=== PATIENT | female | born 1955 | race Asian ===

== ENCOUNTER → 2018-09-20 | Outpatient (CLI) | payer BC ==
[2018-09-22 14:08] LABS: HPV 16 Negative (Negative); HPV 18 Negative (Negative); HPV OTHER HR TYPES Negative (Negative)
== END ==
LOC: LAB 17:46 → LAB SHORT 17:46
PROVIDERS: Obstetrics & Gynecology Gynecology
DX: Z12.4 Encounter for screening for malignant neoplasm of cervix (principal)
CPT/HCPCS: 87624; G0123

== ENCOUNTER 2021-02-26 08:47 | Emergency (ER) | payer BC ==
[~2021-02-26] VITALS: Ht 167.6 cm; Wt 79.4 kg
== END 2021-02-26 10:50 | disposition home or self-care (01) ==
LOC: ER 08:47
DX: S63.283A Dislocation of proximal interphalangeal joint of left middle finger, initial encounter (principal); S61.213A Laceration without foreign body of left middle finger without damage to nail, initial encounter; W01.0XXA Fall on same level from slipping, tripping and stumbling without subsequent striking against object, initial encounter
CPT/HCPCS: 26770; 73140; 99283-25

== ENCOUNTER 2022-07-06 11:39 | Day surgery (SDC) | payer MEDICARE ==
[~2022-07-06] VITALS: Ht 162.6 cm; Wt 94.9 kg
[2022-07-06] MEDS ORDERED: Flurbiprofen100 MG (11:51)
[2022-07-06] MEDS ORDERED: FLOVENT HFA12 GM (11:52)
[2022-07-06] MEDS ORDERED: LOSARTAN-HCTZ1 EAC6 (11:52)
[2022-07-06] MEDS ORDERED: Ventolin5 MG/1 ML (11:52)
--- NOTE | 2022-07-06 11:58 | NUR ---
07/06/22 1158 Neha Lin TO RIGHT EYE @ 1152 PLEDGET TO RIGHT EYE @ 1156 BY [email or web address]
--- NOTE | 2022-07-06 13:55 | NUR ---
07/06/22 1355 Timbo Corea [id number] 22.5 LENS IMPLANTED. #[id number], EXP 03/04/25.
--- NOTE | 2022-07-06 14:03 | NUR ---
07/06/22 1403 Paul Woody PT ADVISED TO MONITOR BP AT HOME AND FOLLOW UP WITH PCP REGARDING HYPERTENSION.
== END 2022-07-06 13:55 | disposition home or self-care (01) ==
LOC: ORSCSDS 11:39
PROVIDERS: Ophthalmology
PROC: 08RJ3JZ Replacement of Right Lens with Synthetic Substitute, Percutaneous Approach (ICD-10-PCS; principal; 2022-07-06 13:00)
DX: H25.11 Age-related nuclear cataract, right eye (principal); H52.201 Unspecified astigmatism, right eye; H52.4 Presbyopia; I10 Essential (primary) hypertension; J45.909 Unspecified asthma, uncomplicated; Z79.899 Other long term (current) drug therapy
CPT/HCPCS: J2001; J2250; J3010; J3301; J7040; V2632

== ENCOUNTER 2022-07-27 11:28 | Day surgery (SDC) | payer MEDICARE ==
[~2022-07-27] VITALS: Ht 162.6 cm; Wt 97.3 kg
[~2022-07-27 11:28] MED LIST: FLOVENT HFA12 GM; Flurbiprofen100 MG; LOSARTAN-HCTZ1 EAC6; Ventolin5 MG/1 ML
== END 2022-07-27 13:52 | disposition home or self-care (01) ==
LOC: ORSCSDS 11:28
PROVIDERS: Ophthalmology
PROC: 08RK3JZ Replacement of Left Lens with Synthetic Substitute, Percutaneous Approach (ICD-10-PCS; principal; 2022-07-27 13:00)
DX: H25.12 Age-related nuclear cataract, left eye (principal); H52.202 Unspecified astigmatism, left eye; H52.4 Presbyopia; I10 Essential (primary) hypertension; J45.909 Unspecified asthma, uncomplicated; E66.9 Obesity, unspecified; Z68.36 Body mass index [BMI] 36.0-36.9, adult; Z79.899 Other long term (current) drug therapy
CPT/HCPCS: J2001; J2250; J3010; J3301; J7040; V2632

== ENCOUNTER 2023-01-10 09:38 | Day surgery (SDC) | payer MEDICARE ==
[~2023-01-10] VITALS: Ht 162.6 cm; Wt 92.2 kg
[2023-01-10] MEDS ORDERED: MONT10T (10:26)
[2023-01-10] MEDS ORDERED: PRED PH-MOXI-BRO5 M1 (10:27)
--- NOTE | 2023-01-10 10:57 | NUR ---
01/10/23 1057 FLAQUITA KEENE IV ONE WAS IN RH AND IT BLEW SECOND WAS IN RAC COULD NOT BE ADVANCED. TRY 3 WAS IN IN LFA AND IT BLEW FROTH WAS IN LH AND ALSO BLEW
[2023-01-10 12:40] VITALS: BP 162/98
== END 2023-01-10 12:37 | disposition home or self-care (01) ==
LOC: ORSCSDS 09:38
PROVIDERS: Internal Medicine Gastroenterology
PROC: 0DJD8ZZ Inspection of Lower Intestinal Tract, Via Natural or Artificial Opening Endoscopic (ICD-10-PCS; principal; 2023-01-10 11:15)
DX: Z12.11 Encounter for screening for malignant neoplasm of colon (principal); K64.8 Other hemorrhoids; I10 Essential (primary) hypertension; R73.9 Hyperglycemia, unspecified; J45.909 Unspecified asthma, uncomplicated; E66.9 Obesity, unspecified; Z68.35 Body mass index [BMI] 35.0-35.9, adult; Z79.899 Other long term (current) drug therapy
CPT/HCPCS: J2704; J7120

== ENCOUNTER 2023-10-03 13:46 | Day surgery (SDC) | payer MEDICARE ==
[~2023-10-03] VITALS: Ht 162.6 cm; Wt 93.6 kg
[~2023-10-03 13:46] MED LIST changes: +ADVAIR HFA 230-28 GM; +ALBU90OI; +ARTHRITIS PAIN150 GM; +FLUT1DIS2 INH; +Fluorouracil10 M1; +Flurbiprofen100 MG PO; +LOSARTAN-HCTZ1 EAC5 PO; +MONT10T; +PRED PH-MOXI-BRO5 M1; +Ropivacaine 0.5% HCl/Pf 5 MG/ML 20ML VIAL ONE; -Ventolin5 MG/1 ML
[2023-10-03] MEDS ORDERED: NS 50 ML IV ONE (14:28)
[2023-10-03] MEDS ORDERED: CeFAZolin Sodium 2,000 MG VIAL ONE (14:28)
[2023-10-03] MEDS ORDERED: Lactated Ringer's 1,000 ML IV ONE ×2 (14:28→15:09)
[2023-10-03] MEDS ORDERED: Vitamin D1000 UNI1 PO (14:34)
[2023-10-03] MEDS ORDERED: CETI5 PO (14:34)
--- NOTE | 2023-10-03 14:45 | NUR ---
10/03/23 5575 Marianne Lowe PAUSE NOTED DURING AUSCULATION OF HEART. 3 LEAD TAKEN. 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 SERRANO
[2023-10-03] MEDS ORDERED: propofoL 20 ML IV ONE (14:48)
[2023-10-03] MEDS ORDERED: FentaNYL Citrate 50 MCG/ML 2 ML Injection ONE (14:48)
[2023-10-03] MEDS ORDERED: EPINEPhrine HCl 1 MG/ML 1ML Amp XX ONE ×2 (15:35)
[2023-10-03] MEDS ORDERED: Ondansetron HCl 2 MG / ML 2ML Vial ONE (15:47)
[2023-10-03] MEDS ORDERED: Dexamethasone Sod Phos 10 MG/ML 1ML VIAL ONE (15:47)
[2023-10-03] MEDS ORDERED: Labetalol HCL 5 MG/ML 4ML Injection (Single Dose) ONE (16:11)
[2023-10-03] MEDS ORDERED: HydrALAZINE HCl 20 MG / ML 1ML Vial ONE (16:24)
--- NOTE | 2023-10-03 16:27 | NUR ---
10/03/23 1627 Ginette Pacheco PER ARYA AYALA, GIVE ONE DOSE 5 MG HYDRALAZINE AND WAIT 20 MINUTES TO SEE IF PATIENT'S BLOOD PRESSURE RETURNS TO BASELINE.
[2023-10-03 17:32] VITALS: BP 187/98
--- NOTE | 2023-10-03 17:33 | NUR ---
10/03/23 1980 FarazamyGinette 1705: PATIENT CONTINUES TO HAVE ELEVATED BLOOD PRESSURE, HR 76, DENIES HEADACHE OR OTHER ISSUES. PATIENT DENIES PAIN AND NAUSEA. WILL CONSULT DR GONCALVES,ANESTHESIA.
== END 2023-10-03 17:38 | disposition home or self-care (01) ==
LOC: ORSCSDS 13:46
PROVIDERS: Podiatrist Foot & Ankle Surgery
PROC: 0SRQ0JZ Replacement of Left Toe Phalangeal Joint with Synthetic Substitute, Open Approach (ICD-10-PCS; principal; 2023-10-03 15:30)
PROC: 0Q8P0ZZ Division of Left Metatarsal, Open Approach (ICD-10-PCS; principal; 2023-10-03 15:30)
DX: M20.42 Other hammer toe(s) (acquired), left foot (principal); I10 Essential (primary) hypertension; J45.909 Unspecified asthma, uncomplicated; E66.9 Obesity, unspecified; Z68.35 Body mass index [BMI] 35.0-35.9, adult; Z79.899 Other long term (current) drug therapy; Z87.891 Personal history of nicotine dependence
CPT/HCPCS: C1713; C1769; J0171; J0360; J0690; J1100; J2405; J2704; J2795; J3010; J7120

== ENCOUNTER → 2025-04-08 | Outpatient (CLI) | payer MEDICARE ==
[~2025-04-08] MED LIST changes: +CETI5 PO; -Ropivacaine 0.5% HCl/Pf 5 MG/ML 20ML VIAL ONE; +Vitamin D1000 UNI1 PO
[2025-04-08 14:24] LABS: Bacterial Vaginosis PCR Negative (NEGATIVE); Candida Group, PCR NOT DETECTED (NOT DETECT); Candida glabrata-krusei, PCR NOT DETECTED (NOT DETECT)
== END | disposition home or self-care (01) ==
LOC: LAB SHORT 10:07 → LAB 10:07
PROVIDERS: Advanced Practice Midwife
DX: N76.0 Acute vaginitis (principal)
CPT/HCPCS: 81515

== ENCOUNTER → 2025-05-13 | Outpatient (CLI) | payer MEDICARE | LOC: PLD 07:51 → LAB SHORT 07:51 | DX: N95.0 Postmenopausal bleeding (principal) | CPT/HCPCS: 88305 ==

== ENCOUNTER 2025-06-20 07:06 | Day surgery (SDC) | payer MEDICARE ==
[~2025-06-20] VITALS: Ht 162.6 cm; Wt 104.1 kg
[2025-06-20] MEDS ORDERED: AMLO5 PO (07:37)
[2025-06-20] MEDS ORDERED: FentaNYL Citrate 50 MCG/ML 2 ML Injection ONE (07:59)
[2025-06-20] MEDS ORDERED: Dexamethasone Sod Phos 10 MG/ML 1ML VIAL ONE (08:02)
[2025-06-20] MEDS ORDERED: Ondansetron HCl 2 MG / ML 2ML Vial ONE (08:02)
[2025-06-20] MEDS ORDERED: Ketorolac Tromethamine 30mg Vial ONE (08:02)
--- NOTE | 2025-06-20 09:30 | NUR ---
06/20/25 0930 [facility]AIR, PERIPAD CHANGED. PT STATES NO PAIN OR NAUSEA, NO SORE THROAT. PANTS PUT ON. PATIENT TOLERATING PO FLUIDS. PT STATES HER BLOOD PRESSURE IS HIGH BASELINE, IN PRE-OP WAS 183/73 WITH HR OF 80. PT REPORTS SHE TOOK HER [place] HYDROCHOLORTHIAZIDE THIS AM. PT NORMALLY TAKES HER AMLODIPINE IN THE EVENING AND SHE REPORTED THAT SHE TOOK THAT LAST NIGHT.
[2025-06-20 09:31] VITALS: BP 179/75
== END 2025-06-20 09:52 | disposition home or self-care (01) ==
LOC: ORSCSDS 07:06
PROVIDERS: Obstetrics & Gynecology
PROC: 0UDB8ZX Extraction of Endometrium, Via Natural or Artificial Opening Endoscopic, Diagnostic (ICD-10-PCS; principal; 2025-06-20 08:30)
DX: R93.89 Abnormal findings on diagnostic imaging of other specified body structures (principal); N95.0 Postmenopausal bleeding; N84.0 Polyp of corpus uteri; I10 Essential (primary) hypertension; J45.909 Unspecified asthma, uncomplicated; E66.9 Obesity, unspecified; Z68.39 Body mass index [BMI] 39.0-39.9, adult; Z79.899 Other long term (current) drug therapy
CPT/HCPCS: 88305; J1100; J1885; J2405; J2704; J3010; J7120